=== PATIENT | male | born 1970 | race Caucasian/White ===

== ENCOUNTER 2019-05-03 16:05 | Observation (INO) | payer BC ==
[~2019-05-03] VITALS: Ht 162.6 cm; Wt 62.7 kg
[2019-05-03 16:37] VITALS: BP 117/74; PULSE 74
[2019-05-03 16:39] VITALS: Ht 162.6 cm; Wt 62.7 kg
[2019-05-03] MEDS ORDERED: ZOLPIDEM 5 MG TAB PO PRN (17:00)
[2019-05-03] MEDS ORDERED: NACL 0.9% 3 ML SYG IV SCH ×2 (17:00)
[2019-05-03] MEDS ORDERED: ACETAMINOPHEN 325 MG TAB PO PRN (17:00)
[2019-05-03] MEDS ORDERED: ONDANSETRON 4 MG INJ IV PRN (17:00)
[2019-05-03] MEDS: SOD CHLORIDE 0.9% 1,000 ML IV SCH (17:50)
[2019-05-03 19:40] VITALS: BP 125/78; PULSE 60; RESP 18
[2019-05-03] MEDS ORDERED: ATORVASTATIN 40 MG TAB PO SCH (21:00)
[2019-05-04] MEDS: SOD CHLORIDE 0.9% 1,000 ML IV SCH ×3 (01:35→10:51)
[2019-05-04 02:24] VITALS: BP 125/78; PULSE 68; RESP 18
[2019-05-04 07:23] VITALS: BP 113/77; PULSE 60; RESP 18
[2019-05-04] MEDS ORDERED: LISINOPRIL 10 MG TAB PO SCH (09:00)
[2019-05-04 13:45] VITALS: BP 127/79; PULSE 73; RESP 18
== END 2019-05-04 18:30 | disposition home or self-care (01) ==
LOC: MS3 16:05 → INTOOBSV 16:05
PROVIDERS: ADMIT Internal Medicine; ATTEND Internal Medicine
DX: R31.0 Gross hematuria (principal); I12.9 Hypertensive chronic kidney disease with stage 1 through stage 4 chronic kidney disease, or unspecified chronic kidney disease; N18.9 Chronic kidney disease, unspecified; E78.5 Hyperlipidemia, unspecified; M10.9 Gout, unspecified; M19.90 Unspecified osteoarthritis, unspecified site; N40.0 Benign prostatic hyperplasia without lower urinary tract symptoms
CPT/HCPCS: 76775; 80053; 81001; 84560; 85025; 85610; 85730; 86850; 86900; 86901; 87086; 99217; J7030; G0378